=== PATIENT | female | born 1945 | race Caucasian/White ===

== ENCOUNTER 2017-04-12 09:45 | Emergency (ER) | payer OTHER, BC ==
[~2017-04-12] VITALS: Ht 162.6 cm; Wt 83.6 kg
[2017-04-12 10:05] VITALS: BP 180/87
[2017-04-12] MEDS ORDERED: LEVOTHYROXINE88 MCG PO (10:16)
[2017-04-12] MEDS ORDERED: HYZAAR 100-11 TABLET PO (10:17)
[2017-04-12] MEDS ORDERED: LO-DOSE ASPIRIN81 M2 PO (10:17)
[2017-04-12] MEDS ORDERED: ALEVE220 MG PO (10:17)
[2017-04-12] MEDS ORDERED: METOPROLOL SUCC25 MG PO (10:17)
[2017-04-12] MEDS ORDERED: TYLENOL ARTHRI650 MG PO (10:18)
[2017-04-12 10:59] LABS: HEMATOCRIT 42.5 % (36.0-46.0); MCH 28.2 PG (29.0-34.0); MCHC 32.2 G/DL (30.0-36.0); MCV 87.6 FL (83-99); MEAN PLAT.VOLUME 9.7 uM^3 (9.5-12.4); PLATELET COUNT 199 K/uL (156-360); RBC DIS.WIDTH-CV 12.7 % (11.8-14.6); RBC DIS.WIDTH-SD 40.2 % (39-53); RED BLOOD COUNT 4.85 M/uL (3.80-5.20); WHITE BLOOD COUNT 6.4 K/uL (4.1-10.2)
[2017-04-12 11:02] LABS: ADD MIUA? YES; BILIRUBIN NEGATIVE; BLOOD SMALL; COLOR YELLOW ((YELLOW)); GLUCOSE (STRIP) NEGATIVE; KETONES NEGATIVE; LEUKOCYTES NEGATIVE; NITRITE NEGATIVE; PROTEIN (STRIP) NEGATIVE; SPECIFIC GRAVITY 1.011 (1.000-1.030); UROBILINOGEN 0.2 MG/DL (0.2-1.0)
[2017-04-12 11:08] LABS: CHLORIDE 105 mEq/L (99-109); POTASSIUM 4.8 mEq/L (3.7-5.4); SODIUM 142 mEq/L (136-147)
[2017-04-12 11:10] LABS: GLUCOSE 107 mg/dL (70-99)
[2017-04-12 11:11] LABS: ANION GAP 10 MEQ/L (2-14)
[2017-04-12 11:12] LABS: TOTAL BILIRUBIN 0.7 mg/dL (0.0-1.0)
[2017-04-12 11:14] LABS: ALKALINE PHOSPHATASE 106 IU/L (3-129); GFR ESTIMATE (CALCULATED) 43 mL/min/
[2017-04-12 11:15] LABS: BACTERIA NONE SEEN /HPF; EPITHELIAL CELLS RARE /HPF; MUCUS TRACE /LPF; UCUL ADDED? NO; WHITE BLOOD CELLS 0-5 /HPF (0-5)
[2017-04-12 11:15] LABS: UREA NITROGEN (BUN) 26 mg/dL (9-23)
[2017-04-12 11:17] LABS: LIPASE 38 U/L (1.0-51.0)
== END 2017-04-12 12:52 | disposition home or self-care (01) ==
LOC: EME 09:45
PROVIDERS: Emergency Medicine
DX: R10.31 Right lower quadrant pain (principal); I10 Essential (primary) hypertension; E03.9 Hypothyroidism, unspecified; Z87.891 Personal history of nicotine dependence; Z79.82 Long term (current) use of aspirin; Z88.8 Allergy status to other drugs, medicaments and biological substances
CPT/HCPCS: 74176; 80053; 81003; 83690; 85027; 93005; 99281; 99285